=== PATIENT | female | born 2000 | race Caucasian/White ===

== ENCOUNTER 2019-12-26 20:54 | Emergency (ER) | payer OTHER ==
[~2019-12-26] VITALS: Ht 147.3 cm; Wt 48.2 kg
[2019-12-26 20:59] VITALS: BP 110/70; TEMP 99.1
[2019-12-26] MEDS ORDERED: SPRINTEC 35 MCG1 TAB PO (21:15)
[2019-12-26] MEDS ORDERED: ALLEGRA-D 12 HO1 TE1 PO (21:15)
[2019-12-26] MEDS ORDERED: OTEZLA PO (21:15)
[2019-12-26 21:59] VITALS: PULSE 72
== END 2019-12-26 21:55 | disposition home or self-care (01) ==
LOC: COL.ER 20:54
DX: S09.90XA Unspecified injury of head, initial encounter (principal); R40.2412 Glasgow coma scale score 13-15, at arrival to emergency department; W00.0XXA Fall on same level due to ice and snow, initial encounter